=== PATIENT | female | born 1970 | race Caucasian/White ===

== ENCOUNTER → 2020-11-14 | Outpatient (CLI) | payer OTHER ==
[2020-11-14 10:29] LABS: HEMOGLOBIN 13.7 gm/dl (12.3-15.3); RED BLOOD COUNT 4.33 M/UL (4.00-5.10); WHITE BLOOD COUNT 7.8 K/UL (4.5-11.0)
[2020-11-14 11:14] LABS: BUN/CREATININE RATIO 19 (0-10)
[2020-11-16 07:19] LABS: T3 UPTAKE 31 % (24-39)
== END ==
LOC: LAB 09:36
PROVIDERS: Registered Nurse Administrator
DX: F25.0 Schizoaffective disorder, bipolar type (principal); Z79.899 Other long term (current) drug therapy
CPT/HCPCS: 36415; 80053; 80061; 80178; 83036; 84439; 84443; 84479; 85025